=== PATIENT | male | born 1935 | race Caucasian/White ===

== ENCOUNTER 2018-01-05 11:52 | Outpatient (CLI) | payer MEDICARE ==
--- NOTE | 2018-01-05 13:32 | RAD ---
PA AND LATERAL CHEST: INDICATIONS: History of dyspnea. COMPARISON: 10/20/2017 FINDINGS: The peripheral interstitial prominence is stable. The lungs are mildly hyperinflated. No air space consolidation or pleural effusion is evident. Heart size is within normal limits. No acute osseous abnormality is evident. IMPRESSION: Stable chronic lung changes. No acute cardiopulmonary abnormalities demonstrated. POS: [facility]
== END 2018-01-05 11:53 | disposition home or self-care (01) ==
LOC: RAD 11:52
PROVIDERS: ATTEND Internal Medicine Critical Care Medicine
DX: R06.00 Dyspnea, unspecified (principal)
CPT/HCPCS: 71046

== ENCOUNTER 2018-08-26 13:40 | Outpatient (CLI) | payer MEDICARE ==
--- NOTE | 2018-08-26 14:47 | RAD ---
PA AND LATERAL CHEST X-RAY: 08/26/2018 HISTORY: Dyspnea. COMPARISON: 01/05/2018 FINDINGS: There are increased interstitial densities throughout the lungs bilaterally, in a peripheral predomin ance, suggesting chronic interstitial fibrotic lung changes. No new areas of consolidation or pleura l fluid if seen. There is a nodular density overlying the left lung apex. This nodular density coul d be related to the chronic lung changes and was questionably visualized on the prior study but is le ss conspicuous. However, a follow-up chest x-ray is recommended in three months, to ensure stability . The cardiac silhouette and pulmonary vasculature are within normal limits. Vascular calcifications a re seen in the thoracic aorta. Degenerative changes are noted in the spine. IMPRESSION: 1. Nodular density overlying the lateral left upper lung zone, which does appear more conspicuous th an on the prior examination in 2018. This could be related to the chronic lung changes in this regio n, but a follow-up chest radiograph in three months is recommended. 2. Chronic interstitial lung changes. POS: [facility]
== END 2018-08-26 13:41 | disposition home or self-care (01) ==
LOC: RAD 13:40
PROVIDERS: ATTEND Internal Medicine Critical Care Medicine
DX: R06.00 Dyspnea, unspecified (principal); R91.8 Other nonspecific abnormal finding of lung field
CPT/HCPCS: 71046

== ENCOUNTER 2018-12-15 12:39 | Outpatient (CLI) | payer MEDICARE ==
--- NOTE | 2018-12-15 13:13 | RAD ---
2 views chest. HISTORY: Dyspnea. PA and lateral views of the chest is obtained. Diffuse interstitial lung changes seen. No definite evidence of interval changes noted. Radiographic appearance of the chest is stable. No ev idence of pneumonia or pneumothorax seen. IMPRESSION: diffuse interstitial lung changes. Findings appear to be chronic.
== END 2018-12-15 12:40 | disposition home or self-care (01) ==
LOC: RAD 12:39
PROVIDERS: ATTEND Internal Medicine Critical Care Medicine
DX: R06.00 Dyspnea, unspecified (principal)
CPT/HCPCS: 71046

== ENCOUNTER 2019-02-26 18:51 | Inpatient (IN) | payer MEDICARE ==
[~2019-02-26 18:51] MED LIST: ISOVUE-370 76%-LOCM 1 ML ONE
--- NOTE | 2019-02-26 20:37 | CT ---
CT PULMONARY ANGIOGRAM WITH IV CONTRAST AND 3D POSTPROCESSIN02/26/19 HISTORY: Cough. FINDINGS: There is good contrast opacification of the pulmonary arterial vasculature without filling defects t o suggest pulmonary embolism. The thoracic aorta is well opacified without aneurysmal dissection. No pleural or pericardial effusions are seen. No pneumothoraces or lobar consolidation is seen. There is changes of pulmonary fibrosis in the lungs bilaterally. There are degenerative changes in the spine. IMPRESSION: No CT evidence of pulmonary embolism. POS: [facility]
[2019-02-26 23:31] LABS: Troponin I Less than 0.010 ng/mL (< 0.028)
[2019-02-27 00:02] VITALS: BMI 19.5
[2019-02-27] MEDS: Sodium Chloride 0.9% 1,000 ML IV SCH ×2 (00:18→09:31)
--- NOTE | 2019-02-27 01:23 | PDOC.HHP ---
Hospitalist HPI - History of Present Illness CC: I haven't been getting along too good History of Present Illness: Mr. Eddy is an 84 year old gentleman with a history of squamous cell carcinoma of the jaw, who has a PEG tube in place to receive his nutrition. He was in his usual stae of health until this morning when he says he began feeling weak. He wasn't sure what the problem was. He denies having any chest pain , shortness of breath. He denies any fever or chills, nausea, vomiting or diarrhea. He went to the ER, in [place], where he was found to be in SVT with aheart rate in the 140"s. He was given a dose of Metoprolol IV and then converted to AFIB, then to sinus. Currently he is feeling better. He is not sure if he has a history of AFIB or SVT, but sees Dr. Asher who is a Nurse Substance Abuse. Hospitalist ROS - Review of Systems Constitutional: reports: weakness, malaise. denies: fever, chills, sweats, other Eyes: denies: pain, vision change, conjunctivae inflammation, eyelid inflammation, redness, other ENT: denies: ear pain, ear discharge, nose pain, nose discharge, nose congestion , mouth pain, mouth swelling, throat pain, throat swelling, other Respiratory: denies: cough, dry, shortness of breath, hemoptysis, SOB with excertion, pleuritic pain, sputum, wheezing, other Cardiovascular: denies: chest pain, palpitations, orthopnea, paroxysmal noc. dyspnea, edema, light headedness, other Gastrointestinal: denies: nausea, vomitting, abdominal pain, diarrhea, constipation, melena, hematochezia, other Genitourinary: denies: dysuria, frequency, incontinence, hematuria, retention, other Musculoskeletal: denies: neck pain, shoulder pain, arm pain, back pain, hand pain, leg pain, foot pain, other Skin: denies: rash, lesions, dylan, bruising, other - Medication Medications: Active Medications Generic Name Dose Route Start Last Admin Trade Name Freq PRN Reason Stop Dose Admin Sodium Chloride 1,000 mls @ 125 mls/hr 02/26/19 23:45 02/27/19 00:18 Normal Saline 0.9% IV 02/27/19 09:10 1,000 mls .Q8H MAYTE Administration Home medications: Protonix 40 mg a day Lipitor 20 mg a day Latanaprost Tylenol # 3 Hospitalist History - Past Medical History Source: patient Heme/Onc: reports: Cancer (Squamous Cell Cancer of the jaw) Endocrine: reports: Other (Hyperlipidemia) Other Medical History: GERD Cataracts - Past Surgical History Past Surgical History: reports: Other (Bilateral Carotid endarterctomy Heart ablation Left ankle replar PEG tube placement) - Family History Family History: reports: no pertinent history - Social History Smoking Status: Unknown if ever smoked Alcohol: reports: None Drugs: reports: none Living Situation: With Family Domestic Violence: Negative Activity level: uses cane/walker (Code status- Full Code Allergies- KNDA) - Exam Eye: PERRL, anicteric sclera ENT: normocephalic atraumatic, no oropharyngeal lesions Neck: supple, symmetric, no JVD, no thyromegaly, no lymphadenopathy, no carotid bruit Heart: RRR, no murmur, no gallops, no rubs, normal peripheral pulses Respiratory: CTAB, no wheezes, no rales, no ronchi, normal chest expansion, no tachypnea, normal percussion Gastrointestinal: soft, non-tender (PEG Tube site- clean, no erythema no exudates, no induration), non-distended, normal bowel sounds, no palpable masses , no hepatomegaly, no splenomegaly Extremities: no cyanosis, no clubbing, no edema Skin: normal turgor, no lesions, no rashes Neurological: CN's grossly intact, normal sensation to touch, no weakness, no focal deficits, no new deficit Musculoskeletal: normal tone, normal strength, no muscle wasting Psychiatric: normal affect, normal behavior, A&O x 3 Hospitalist Results - Labs Lab results: Troponin I Less than 0.010 ng/mL (< 0.028) 02/26/19 22:52 Hospitalist H&P A/P - Problem (1) SVT (supraventricular tachycardia) Code(s): I47.1 - SUPRAVENTRICULAR TACHYCARDIA Status: Acute (2) Afib Code(s): I48.91 - UNSPECIFIED ATRIAL FIBRILLATION Status: Acute (3) GERD (gastroesophageal reflux disease) Code(s): K21.9 - GASTRO-ESOPHAGEAL REFLUX DISEASE WITHOUT ESOPHAGITIS Status: Chronic (4) Squamous cell carcinoma of mandible Code(s): C41.1 - MALIGNANT NEOPLASM OF MANDIBLE Status: Chronic - Plan Plan: * SVT- he has converted to sinus rhythm- hopefully this will be maintained. Will request the records from Dr. Gale, and consult Cardiology in the AM * AFIB- as above- he is now in sinus- unclear if he has been diagnosed with AFIB in the past * GERD- continue a PPI * Squamous cell cancer- stable * Nutritional support- continue PEG tube feedings as he was getting before * DVT and GI Prophylaxis
[2019-02-27] MEDS ORDERED: hydrALAZINE 20 MG/ML VIAL SLOW IVP PRN (01:45)
[2019-02-27] MEDS ORDERED: Ondansetron ODT 4 MG TAB PER TUBE PRN (01:45)
[2019-02-27] MEDS ORDERED: Acetaminophen 325 MG TAB PER TUBE PRN (01:45)
[2019-02-27] MEDS: Ondansetron PF 4 MG/2 ML Vial IVP PRN ×2 (03:31→13:56)
[2019-02-27 05:19] LABS: #Eosinphils 0.2 thou/uL (0.0-0.7); #Lymphocytes 1.1 thou/uL (1.20-3.40); #Monocytes 1.5 thou/uL (0.11-0.59); #Neutrophils 12.7 thou/uL (1.40-6.50); %Basophils 0.1 % (0.0-1.0); %Eosinophils 1.3 % (0.0-10.0); %Lymphocytes 6.8 % (21.0-51.0); %Monocytes 9.5 % (0.0-10.0); %Neutrophils 82.2 % (42.0-75.0); Hemoglobin 12.2 g/dL (14.0-18.0); Mean Corpuscular HGB CONC 33.3 g/dL (32.0-36.0); Mean Corpuscular Hemoglobin 31.5 pg (27.0-31.0); Mean Corpuscular Volume 94.5 fL (78.0-98.0); Mean Platelet Volume 7.6 fL (7.4-10.4); Platelet Count 305 thou/uL (130-400); RBC Distribution Width 12.3 % (11.5-14.5); Red Blood Cell (RBC) Count 3.88 mill/uL (4.70-6.10); White Blood Cell (WBC) Count 15.5 thou/uL (4.8-10.8)
[2019-02-27 05:40] LABS: Anion Gap 9 mmol/L (10-20); BUN (Urea Nitrogen) 19 mg/dL (8.4-25.7); Calc. Creatinine Clearance 56 mL/min (70-130); Calcium 8.1 mg/dL (7.8-10.44); Carbon Dioxide 25 mmol/L (23-31); Chloride 104 mmol/L (98-107); Estimated GFR-MDRD 83; Glucose 121 mg/dL (83-110); Potassium 3.9 mmol/L (3.5-5.1); Sodium 134 mmol/L (136-145)
[2019-02-27] MEDS ORDERED: Metoprolol Tartrate 25 MG TAB PO SCH ×2 (09:00)
[2019-02-27] MEDS: Famotidine 20 MG TAB PER TUBE SCH ×2 (09:31→20:55)
[2019-02-27] MEDS: Vancomycin HCl 25 MG/ML Oral PO SCH ×2 (13:55→16:39)
[2019-02-27] MEDS: Amiodarone 200 MG TAB PO SCH ×2 (13:56→20:55)
--- NOTE | 2019-02-27 15:02 | PDOC.HOSPP ---
- Subjective Encounter Date: 02/27/19 Encounter Time: 09:00 Subjective: 84 y/o male with jaw cancer s/p resection admitted with paroxysmal SVT and Afib. Still feeling weak. was having frequent loose stolls and c dif was positive. - Objective Vital Signs & Weight: Vital Signs (12 hours) Temp Pulse Resp BP BP Pulse Ox 02/27/19 13:53 97.1 F L 102 H 18 125/66 95 02/27/19 09:35 99.4 F 88 20 108/57 L 100 02/27/19 04:00 97.7 F 92 20 127/61 100 Weight Weight 140 lb I&O: 02/26/19 02/27/19 02/28/19 06:59 06:59 06:59 Intake Total 1780 150 Output Total 1200 Balance 580 150 Result Diagrams: 02/27/19 04:43 02/27/19 04:43 Hospitalist ROS - Medication Medications: Active Medications Generic Name Dose Route Start Last Admin Trade Name Freq PRN Reason Stop Dose Admin Amiodarone HCl 400 mg 02/27/19 15:00 02/27/19 13:56 Cordarone PO 400 mg TID MAYTE Administration Famotidine 20 mg 02/27/19 09:00 02/27/19 09:31 Pepcid PER TUBE 20 mg BID MAYTE Administration Ondansetron HCl 4 mg 02/27/19 01:45 02/27/19 13:56 Zofran IVP 4 mg Q6H PRN Administration Nausea/Vomiting Vancomycin HCl 125 mg 02/27/19 12:00 02/27/19 13:55 First Vancomycin PO 1 syr Q6HR MAYTE Administration - Exam General Appearance: awake alert General - other findings: chronically ill looking Eye: anicteric sclera ENT: normocephalic atraumatic Neck: supple, no JVD Heart: RRR Respiratory: no wheezes, no ronchi Respiratory - other findings: fair air entry bilaterally Gastrointestinal: soft, non-tender, non-distended, normal bowel sounds Gastrointestinal - other findings: PEG tube Extremities: no cyanosis, no edema Neurological: CN's grossly intact Psychiatric: A&O x 3 Hosp A/P (1) Paroxysmal atrial fibrillation with RVR Code(s): I48.0 - PAROXYSMAL ATRIAL FIBRILLATION Status: Acute (2) Physical deconditioning Code(s): R53.81 - OTHER MALAISE Status: Acute (3) C. difficile diarrhea Code(s): A04.72 - ENTEROCOLITIS D/T CLOSTRIDIUM DIFFICILE, NOT SPCF RECUR Status: Acute (4) SVT (supraventricular tachycardia) Code(s): I47.1 - SUPRAVENTRICULAR TACHYCARDIA Status: Acute (5) GERD (gastroesophageal reflux disease) Code(s): K21.9 - GASTRO-ESOPHAGEAL REFLUX DISEASE WITHOUT ESOPHAGITIS Status: Chronic (6) Squamous cell carcinoma of mandible Code(s): C41.1 - MALIGNANT NEOPLASM OF MANDIBLE Status: Chronic - Plan Start oral vancomycin Monitor electrolytes and replete as needed Continue tube feeding. PT/OT eval and treat
--- NOTE | 2019-02-27 15:04 | CON ---
DATE OF CONSULTATION: HISTORY OF PRESENT ILLNESS: The patient is an unfortunate 84-year-old gentleman with mandibular carcinoma, who presented with severe weakness and was noted to have a rapid irregular heart rhythm. The patient has a previous history of atrial fibrillation. He has undergone two ablations for radiofrequency ablation. The patient was on Xarelto for a while. He has a history of a GI hemorrhage and this medication was discontinued. The patient has been on aspirin therapy. He was in his usual state of health when he became weak and presented to the emergency room with a rapid heart rhythm. The patient denied having any chest discomfort. PAST MEDICAL HISTORY: Significant for, 1. Mandibular carcinoma. 2. Dyslipidemia. 3. GE reflux. PAST SURGICAL HISTORY: He has had carotid endarterectomy, ankle surgery, and a PEG placement. SOCIAL HISTORY: Former smoker. FAMILY HISTORY: Positive family history of heart disease. ALLERGIES: NO KNOWN DRUG ALLERGIES. REVIEW OF SYSTEMS: Noticeable for a weight loss. PHYSICAL EXAMINATION: GENERAL: Thin gentleman in no acute distress. VITAL SIGNS: Blood pressure 108/57. NECK: Showed no jugular venous distention. HEENT: His jaw is displaced. LUNGS: Clear to auscultation. HEART: Regular rate and rhythm. Normal S1 and S2. ABDOMEN: Nondistended. EXTREMITIES: Showed no edema. VASCULAR: Radial pulse is 2+. LABORATORY DATA: Sodium 134, potassium 3.9, chloride 104, bicarbonate 25, BUN 19, creatinine 0.87. White blood cell count 15.5, hemoglobin 12.2, hematocrit 36.6, platelets 305. IMAGING STUDIES: EKG revealed him to have supraventricular tachycardia with a rate of 140. ASSESSMENT AND PLAN: Followup telemetry monitoring revealed atrial fibrillation. The patient presents with supraventricular tachycardia and atrial fibrillation. From a cardiac standpoint, he is a poor patient for anticoagulation therapy with his history of GI hemorrhage and ongoing mandibular carcinoma. We would recommend he be treated with amiodarone to maintain sinus rhythm. We will start this medication. We will follow this patient with you through his hospitalization. Job ID: [id number]
[2019-02-27] MEDS ORDERED: Prevnar 13-Val Conj/PF 0.5 ML SYRINGE IM ONE (21:00)
[2019-02-28] MEDS: Vancomycin HCl 25 MG/ML Oral PO SCH (00:17)
[2019-02-28 06:21] LABS: #Eosinphils 0.2 thou/uL (0.0-0.7); #Monocytes 1.1 thou/uL (0.11-0.59); #Neutrophils 5.8 thou/uL (1.40-6.50); %Basophils 0.2 % (0.0-1.0); %Eosinophils 2.6 % (0.0-10.0); %Lymphocytes 21.6 % (21.0-51.0); %Monocytes 12.3 % (0.0-10.0); %Neutrophils 63.3 % (42.0-75.0); Hemoglobin 11.9 g/dL (14.0-18.0); Mean Corpuscular Hemoglobin 32.5 pg (27.0-31.0); Mean Corpuscular Volume 95.7 fL (78.0-98.0); Mean Platelet Volume 7.1 fL (7.4-10.4); Platelet Count 279 thou/uL (130-400); RBC Distribution Width 12.4 % (11.5-14.5); Red Blood Cell (RBC) Count 3.66 mill/uL (4.70-6.10); White Blood Cell (WBC) Count 9.1 thou/uL (4.8-10.8)
[2019-02-28 06:34] LABS: Anion Gap 10 mmol/L (10-20); BUN (Urea Nitrogen) 16 mg/dL (8.4-25.7); Calc. Creatinine Clearance 58 mL/min (70-130); Calcium 8.4 mg/dL (7.8-10.44); Carbon Dioxide 24 mmol/L (23-31); Chloride 106 mmol/L (98-107); Estimated GFR-MDRD 88; Glucose 98 mg/dL (83-110); Potassium 4.1 mmol/L (3.5-5.1); Sodium 136 mmol/L (136-145)
[2019-02-28] MEDS: Vancomycin HCl 25 MG/ML Oral PER TUBE SCH ×2 (06:41→12:59)
[2019-02-28] MEDS ORDERED: Sodium Chloride 0.9% 1,000 ML IV SCH (08:00)
[2019-02-28] MEDS ORDERED: Amiodarone 200 MG TAB PER TUBE SCH (09:00)
[2019-02-28] MEDS: Famotidine 20 MG TAB PER TUBE SCH (10:10)
[2019-02-28 11:27] VITALS: TEMP 96.9
[2019-02-28 17:56] VITALS: BP 107/55
--- NOTE | 2019-02-28 20:43 | PDOC.EVN ---
Event Note - Event Note Event Note: Discharge summary dictated. #[id number]
--- NOTE | 2019-03-01 14:23 | DIS ---
DATE OF ADMISSION: 02/28/2019 DATE OF DISCHARGE: 02/28/2019 PRIMARY CARE PHYSICIAN: Dr. Tere Rosales. DISCHARGE DIAGNOSES: 1. Paroxysmal atrial fibrillation with rapid ventricular response. 2. Paroxysmal supraventricular tachycardia. 3. Clostridium difficile colitis/diarrhea. 4. Gastroesophageal reflux disease. 5. Physical deconditioning. 6. Squamous cell carcinoma of the mandible. 7. Oropharyngeal dysphagia, on tube feeding via percutaneous endoscopic gastrostomy tube. 8. Prior history of gastrointestinal bleeding. CONSULT: Cardiology. HOSPITAL COURSE: An 84-year-old male with known history of jaw cancer status post resection, complicated with oropharyngeal dysphagia requiring nutrition via tube feeding through a PEG tube, admitted due to generalized weakness as well as frequent loose stools. The patient was found in the emergency room to have a supraventricular tachycardia, which soon converted to paroxysmal atrial fibrillation with rapid ventricular response. The patient was treated with rate control medications with improvement. Cardiology consult was obtained and given the fact that the patient is not a candidate for anticoagulation given prior history of GI bleeding, Cardiology was of the view that the patient should be on rhythm control with amiodarone. Amiodarone loading dose was commenced and the patient remained in sinus rhythm. The patient who normally is on Isosource tube feeding, which is not available in the hospital was transitioned to Jevity 1.5, but he could not tolerate these having vomiting following tube feeding, hence the patient was asked to bring his usual Isosource from home and this was well tolerated and nausea and vomiting resolved. Given the history of frequent loose stools, stool sample was sent for C. diff and it came back positive. The patient was started on oral vancomycin with improvement of loose stools and general well-being of the patient. The patient remained in sinus rhythm and improved and was subsequently discharged home to continue treatment at home. PHYSICAL EXAMINATION: VITAL SIGNS: Temperature 96.9, pulse 73, respiratory rate 18, SpO2 of 98% on room air, blood pressure is 107/55. GENERAL: Conscious and alert, oriented x3 with appropriate mental status. Afebrile, anicteric, acyanotic. HEENT: Normocephalic. Mild right-sided jaw deformity noted. CARDIOVASCULAR: Regular rhythm and rate with normal heart sounds one and two. RESPIRATORY: Fair air entry bilaterally with few transmitted sounds. No obvious crackle or use of accessory muscles was appreciated. GI: Full, soft, nontender, nondistended with normal bowel sounds. PEG tube noted. EXTREMITIES: Grossly normal looking, atraumatic with no obvious edema or edema. DEPARTMENT SALES MANAGER: Conscious, alert, oriented x3 with appropriate mental status. DISCHARGE DISPOSITION: Home with home health. DISCHARGE CONDITION: Improved. HOME MEDICATIONS: See discharged home meds. Two new medication added were amiodarone and oral vancomycin. TIME SPENT: Discharge took more than 38 minutes. Job ID: [id number]
== END 2019-02-28 14:02 | disposition home health service (06) | DRG 309 ==
LOC: ERS 18:51 → 2NO 21:10 → OBSVTOIN 02-28 10:55
PROVIDERS: ADMIT Internal Medicine; ATTEND Internal Medicine
DX: I48.0 Paroxysmal atrial fibrillation (principal); C41.1 Malignant neoplasm of mandible; A04.72 Enterocolitis due to Clostridium difficile, not specified as recurrent; K21.9 Gastro-esophageal reflux disease without esophagitis; E78.5 Hyperlipidemia, unspecified; I47.1 Supraventricular tachycardia; R13.12 Dysphagia, oropharyngeal phase; Z79.899 Other long term (current) drug therapy; Z98.49 Cataract extraction status, unspecified eye; Z87.891 Personal history of nicotine dependence
CPT/HCPCS: 36415; 71275; 80048; 83735; 85025; 87324; 87449; 90471; 90670; 93005; 96360; G0009; J2405; Q9966